=== PATIENT | male | born 1995 | race Caucasian/White ===

== ENCOUNTER 2016-10-14 15:03 | Emergency (ER) | payer OTHER ==
--- NOTE | ~2016-10-14 | US115 ---
[facility] A Service of [facility] & [facility] RADIOLOGY TEXT RESULTS PATIENT: MAYUR CORDON LOCATION: [facility] : [birth year] UNIT #: [id number] AGE: [address]: Chris Partida MD SEX: M ORDER DR: [id number] [facility] [address] [place], [place] [address] [id number] E MR#: [id number] Acc #: [id number] NAME: MAYUR CORDON : 1995 SEX: M STUDY DATE/TIME: 10/14/2016 18:13 UNIT: MIK ROOM: STUDY DESCRIPTION: US Scrotum and Contents Attending Physician: Chris Partida M.D. Ordering Physician: Chris Partida M.D. Primary Care Physician: Primary Care Physician No MEDICAL IMAGING REPORT This report is preliminary unless electronic signature is present EXAM Scrotal ultrasound, 10/14/16 HISTORY Testicular pain, left greater than right for 2 days. Denies injury. FINDINGS Real-time ultrasonography of the scrotal contents performed. Pedro-scale, color Doppler, Doppler pulse wave interrogation utilized. No comparisons. The right testis measures 4.6 cm x 2.3 cm x 3.0 cm. Normal in contour. Slightly heterogeneous echotexture with no focal abnormality. Arterial and venous flow seen in the right testis. No abnormal fluid collection in the right hemiscrotum. The right epididymis is unremarkable. The left testis measures 4.49 cm x 2.45 cm x 2.90 cm. There is arterial and venous flow in the left testis. The left testis is normal in contour but also slightly heterogeneous in echotexture, similar to the right testis. The left epididymis is unremarkable. No abnormal fluid collections in the left hemiscrotum. IMPRESSION 1. The bilateral testes are normal in size and contour. Slightly heterogeneous echotexture of the bilateral testes. This is symmetric. There is no focal mass lesion suggested. Appearance is probably the normal state for this patient. There is arterial and venous flow in the bilateral testes. No indication of hyperemia to suggest testicular inflammation. 2. The bilateral epididymi are unremarkable. 3. No abnormal fluid collections. Dictated by... [facility] A Service of [facility] & [facility] RADIOLOGY TEXT RESULTS PATIENT: MAYUR CORDON [id number] : [birth year] UNIT #: [id number] AGE: [address]: Chris Partida MD SEX: M ORDER DR: Rashid Forrester M.D. THIS IS AN ELECTRONICALLY VERIFIED REPORT Rashid Forrester M.D. at 10/17/2016 8:26 AM JEAN/briana TD: 10/14/2016 23:11 JOB #: [id number] MEDICAL IMAGING REPORT Page 1 of 1 COPY
[2016-10-14 16:39] LABS: URINE SOURCE CLEAN CATCH
[2016-10-14 16:47] LABS: URINE APPEARANCE CLEAR; URINE BILIRUBIN NEG (NEG); URINE BLOOD NEG (NEG); URINE COLOR YELLOW; URINE GLUCOSE NEG (NEG); URINE KETONE NEG (NEG); URINE LEUKOCYTE ESTERASE NEG (NEG); URINE NITRATE NEG (NEG); URINE PROTEIN NEG (NEG); URINE SPECIFIC GRAVITY 1.023 (1.003-1.035)
[2016-10-14 16:51] LABS: CULTURE INDICATED? NO
[2016-10-17 22:45] LABS: CHLAMYDIA TRACH Not Detected (Not Detected); N GONOR Not Detected (Not Detected)
== END 2016-10-14 20:16 | disposition home or self-care (01) ==
LOC: CED 15:03
PROVIDERS: Emergency Medicine
DX: N50.812 Left testicular pain (principal)
CPT/HCPCS: 76870; 81003; 87491; 87591; 99284